=== PATIENT | male | born 1985 | race Caucasian/White ===

== ENCOUNTER 2016-08-27 16:24 | Emergency (ER) | payer OTHER ==
[~2016-08-27] VITALS: Ht 175.3 cm; Wt 100.0 kg
[~2016-08-27 16:24] MED LIST: ADDERALL20 MG PO; NORCO 325 MG-51 TAB PO; PROTONIX20 MG PO
[2016-08-27 16:35] VITALS: TEMP 97.9
[2016-08-27 17:18] LABS: PH 5 (5-8); SQUAMOUS EPITHELIAL None Seen /hpf; URINE BACTERIA None Seen /hpf; URINE BILIRUBIN Negative (NEGATIVE); URINE BLOOD Negative (NEGATIVE); URINE COLOR Yellow; URINE GLUCOSE Negative (NEGATIVE); URINE KETONE Trace (NEGATIVE); URINE RBC 0-2 /hpf; URINE UROBILINOGEN Negative (NEGATIVE)
[2016-08-27 17:19] LABS: URINE APPEARANCE Clear
[2016-08-27 17:21] LABS: AMPHETAMINE URINE POSITIVE; BARBITURATES URINE NEGATIVE; BENZODIAZEPINES URINE POSITIVE; BUPRENORPHINE URINE NEGATIVE; METHADONE URINE NEGATIVE; OPIATES URINE NEGATIVE; OXYCODONE URINE NEGATIVE; PHENCYCLIDINE URINE NEGATIVE; PROPOXYPHENE URINE NEGATIVE; THC CANNABINOIDS URINE POSITIVE
[2016-08-27 17:27] LABS: BASO # 0.1 (0.0-0.2); BASO % 0.6 % (0.0-2.0); EOS # 0.2 (0.0-0.7); EOS % 1.8 % (0-4.0); GRAN # 4.9 (1.4-6.5); GRAN % 55.3 % (42.2-75.2); HEMOGLOBIN 14.3 g/dl (13.5-18.0); LYMPH % 33.6 % (20.0-51.0); MEAN CELL VOLUME 84 fl (80.0-100.0); MEAN CORPUSCULAR HEMOGLOBIN 29 pg (27.0-31.0); MEAN CORPUSCULAR HGB CONC 34 g/dl (33.0-37.0); MEAN PLATELET VOLUME 9.7 fl (7.4-10.4); MONO # 0.7 (0.1-0.6); MONO % 8.4 % (1.7-9.3); PLATELET COUNT 258 K/mm3 (130-400); RED BLOOD COUNT 4.98 M/mm3 (4.20-5.60); REDCELL DISTRIBUTION WIDTH-CV 11.7 % (11.5-14.5); WHITE BLOOD COUNT 8.8 K/mm3 (4.8-10.8)
[2016-08-27 17:39] LABS: ADJUSTED CALCIUM 9.5 mg/dL (8.4-10.2); ALANINE AMINOTRANSFERASE 59 U/L (21-72); ALBUMIN 4.6 gm/dL (3.5-5.0); ALKALINE PHOSPHATASE 87 U/L (50-136); ANION GAP 15 mmol/L (7-16); BLOOD UREA NITROGEN 20 mg/dL (9-20); CARBON DIOXIDE 26 mmol/L (22-30); CHLORIDE 100 mmol/L (98-107); CREATININE, serum 0.89 mg/dL (0.66-1.25); GLUCOSE 88 mg/dL (74-106); POTASSIUM 3.8 mmol/L (3.4-5.0); SODIUM 142 mmol/L (137-145); TOTAL PROTEIN 8.2 gm/dL (6.4-8.2)
[2016-08-27] MEDS ORDERED: VOLTAREN 75 DR75 MG PO (18:49)
[2016-08-27 21:16] VITALS: BP 131/82; PULSE 84
== END 2016-08-27 22:20 | disposition home or self-care (01) ==
LOC: COL.ER 16:24
PROVIDERS: Emergency Medicine
DX: F15.10 Other stimulant abuse, uncomplicated (principal); F31.9 Bipolar disorder, unspecified; F90.9 Attention-deficit hyperactivity disorder, unspecified type; F12.10 Cannabis abuse, uncomplicated; F13.10 Sedative, hypnotic or anxiolytic abuse, uncomplicated

== ENCOUNTER 2019-02-22 13:48 | Emergency (ER) | payer SELFPAY ==
[~2019-02-22] VITALS: Ht 175.3 cm; Wt 104.5 kg
[~2019-02-22 13:48] MED LIST changes: +VOLTAREN 75 DR75 MG PO
[2019-02-22 13:53] VITALS: TEMP 97
[2019-02-22] MEDS ORDERED: PRILOSEC10 MG PO (14:14)
[2019-02-22] MEDS ORDERED: UNISOM25 MG PO (14:15)
[2019-02-22 16:20] VITALS: BP 131/87; PULSE 95
== END 2019-02-22 16:20 | disposition home or self-care (01) ==
LOC: COL.ER 13:48
DX: S91.011A Laceration without foreign body, right ankle, initial encounter (principal); K21.9 Gastro-esophageal reflux disease without esophagitis; F17.210 Nicotine dependence, cigarettes, uncomplicated; W26.8XXA Contact with other sharp object(s), not elsewhere classified, initial encounter; Y92.009 Unspecified place in unspecified non-institutional (private) residence as the place of occurrence of the external cause
CPT/HCPCS: J1885

== ENCOUNTER 2019-03-03 18:48 | Emergency (ER) | payer SELFPAY ==
[~2019-03-03 18:48] MED LIST changes: +PRILOSEC10 MG PO; +UNISOM25 MG PO
[2019-03-03 18:57] VITALS: BP 143/79; PULSE 105; TEMP 98.9
== END 2019-03-03 19:02 | disposition home or self-care (01) ==
LOC: COL.ER 18:48
DX: S91.011D Laceration without foreign body, right ankle, subsequent encounter (principal)